=== PATIENT | female | born 1975 | race African-American/Black ===

== ENCOUNTER 2020-01-17 14:17 | Emergency (ER) | payer BC ==
[~2020-01-17] VITALS: Ht 167.6 cm; Wt 93.0 kg
[2020-01-17 14:26] VITALS: BP 152/88
[2020-01-17] MEDS ORDERED: OLME20TA13 PO (14:30)
--- NOTE | 2020-01-17 14:30 | NUR ---
SENT BY DR. MOSLEY FOR COVID TEST; DENIES ANY SYMPTOMS
--- NOTE | 2020-01-17 15:11 | NUR ---
covid 19 swab collected and sent to lab
--- NOTE | 2020-01-17 15:12 | NUR ---
Patient discharged to home in stable condition. Written and verbal after care instructions given. Patient verbalizes understanding of instruction.
== END 2020-01-17 15:12 | disposition home or self-care (01) ==
LOC: ER 14:17
DX: Z03.818 Encounter for observation for suspected exposure to other biological agents ruled out (principal); I10 Essential (primary) hypertension
CPT/HCPCS: 99283; C9803; U0003